=== PATIENT | female | born 1940 | race Caucasian/White ===

== ENCOUNTER 2017-08-28 18:19 | Emergency (ER) | payer OTHER, MEDICARE ==
[~2017-08-28] VITALS: Ht 157.5 cm; Wt 50.2 kg
[~2017-08-28 18:19] MED LIST: ASCORBIC ACID100 MG; ASMANEX TW200 MICROG IH; ASTHMANEX IH; BENTYL10 MG PO; CALCIUM + VITA1 EACH PO; CALCIUM CITR1 TABLET PO; CIPRO500 MG PO; COUMADIN,JANTOVE2 MG PO; COUMADIN6 MG PO; COUMADIN7.5 MG; COUMADIN7.5 MG PO; CREON DR 6,0001 EACH PO; CRESTOR20 MG PO; CRESTOR5 MG PO; DELTASONE10 MG PO; DEXILANT60 MG PO; DICYCLOMINE HCL10 MG PO; KLONOPIN0.5 M1 PO; LEXAPRO20 MG PO; LIPITOR40 MG PO; MIRTAZAPINE15 MG PO; ULTRAM50 MG PO; VIBERZI75 MG PO; ZANTAC150 MG PO; ZEGERID OTC 201 EACH PO
[2017-08-28 20:02] LABS: HEMATOCRIT 32.8 % (36.0-46.0); HEMOGLOBIN 11.1 G/DL (11.9-15.5); MCH 28.3 PG (29.0-34.0); MCHC 33.8 G/DL (30.0-36.0); MCV 83.7 FL (83-99); PLATELET COUNT 163 K/uL (156-360); RBC DIS.WIDTH-CV 14.7 % (11.8-14.6); RBC DIS.WIDTH-SD 44.4 % (39-53); RED BLOOD COUNT 3.92 M/uL (3.80-5.20); WHITE BLOOD COUNT 5.3 K/uL (4.1-10.2)
[2017-08-28 20:10] LABS: INTER. NORMALIZED RATIO 1.9
[2017-08-28 20:14] LABS: ALBUMIN 4.2 g/dL (3.2-4.8); CHLORIDE 108 mEq/L (99-109); POTASSIUM 3.8 mEq/L (3.7-5.4); SODIUM 143 mEq/L (136-147)
[2017-08-28 20:16] LABS: GLUCOSE 102 mg/dL (70-99); TOTAL PROTEIN 6.9 g/dL (6.4-8.3)
[2017-08-28 20:18] LABS: TOTAL BILIRUBIN 1.1 mg/dL (0.0-1.0)
[2017-08-28 20:20] LABS: ALKALINE PHOSPHATASE 130 IU/L (3-129); CREATININE 0.8 mg/dL (0.6-1.3); GFR ESTIMATE (CALCULATED) > 59 mL/min/
[2017-08-28 20:21] LABS: AST (GOT) 22 IU/L (2-34); UREA NITROGEN (BUN) 22 mg/dL (9-23)
[2017-08-28 20:23] LABS: ALT (GPT) 16 IU/L (3-49)
[2017-08-28 20:50] VITALS: BP 141/75
== END 2017-08-28 21:20 | disposition home or self-care (01) ==
LOC: EME 18:19
PROVIDERS: Emergency Medicine
DX: T45.511A Poisoning by anticoagulants, accidental (unintentional), initial encounter (principal); J45.909 Unspecified asthma, uncomplicated; F32.9 Major depressive disorder, single episode, unspecified; K21.9 Gastro-esophageal reflux disease without esophagitis; Z86.718 Personal history of other venous thrombosis and embolism; Z87.01 Personal history of pneumonia (recurrent); Z79.01 Long term (current) use of anticoagulants; Z88.5 Allergy status to narcotic agent
CPT/HCPCS: 80053; 85027; 85610; 99281; 99284

== ENCOUNTER 2017-09-03 19:13 | Inpatient (IN) | payer OTHER, MEDICARE ==
[~2017-09-03] VITALS: Ht 152.4 cm; Wt 56.7 kg
[2017-09-03 19:50] LABS: APPEARANCE CLEAR ((CLEAR)); BILIRUBIN NEGATIVE; BLOOD NEGATIVE; COLOR YELLOW ((YELLOW)); GLUCOSE (STRIP) NEGATIVE; KETONES NEGATIVE; LEUKOCYTES SMALL; NITRITE NEGATIVE; PROTEIN (STRIP) NEGATIVE; UROBILINOGEN 0.2 MG/DL (0.2-1.0)
[2017-09-03 19:51] LABS: BASOPHIL (%) 0.2 % (0-1); EOSINOPHIL (%) 1.3 % (0-5); EOSINOPHIL COUNT 0.1 K/uL (0-0.3); HEMATOCRIT 29.8 % (36.0-46.0); HEMOGLOBIN 9.8 G/DL (11.9-15.5); IMMATURE GRANULOCYTE (%) 0.2 % (0.0-0.7); LYMPHOCYTE (%) 35.3 % (15-42); LYMPHOCYTE COUNT 1.6 K/uL (1.0-2.8); MCH 28.2 PG (29.0-34.0); MCHC 32.9 G/DL (30.0-36.0); MCV 85.6 FL (83-99); MONOCYTE (%) 11.2 % (3-12); MONOCYTE COUNT 0.5 K/uL (0-0.8); NEUTROPHIL (%) 51.8 % (45-76); NEUTROPHIL COUNT 2.3 K/uL (1.8-6.4); PLATELET COUNT 151 K/uL (156-360); RBC DIS.WIDTH-CV 14.9 % (11.8-14.6); RBC DIS.WIDTH-SD 46.3 % (39-53); RED BLOOD COUNT 3.48 M/uL (3.80-5.20); WHITE BLOOD COUNT 4.5 K/uL (4.1-10.2)
[2017-09-03 19:59] LABS: ALBUMIN 3.8 g/dL (3.2-4.8)
[2017-09-03 20:00] LABS: CHLORIDE 106 mEq/L (99-109); POTASSIUM 3.6 mEq/L (3.7-5.4); SODIUM 141 mEq/L (136-147)
[2017-09-03 20:02] LABS: GLUCOSE 179 mg/dL (70-99); TOTAL PROTEIN 6.1 g/dL (6.4-8.3)
[2017-09-03 20:03] LABS: BACTERIA RARE /HPF; EPITHELIAL CELLS RARE /HPF; MUCUS TRACE /LPF; RED BLOOD CELLS 0-5 /HPF (0-5); UCUL ADDED? YES
[2017-09-03 20:04] LABS: INTER. NORMALIZED RATIO 3.1
[2017-09-03 20:05] LABS: ALKALINE PHOSPHATASE 117 IU/L (3-129)
[2017-09-03 20:06] LABS: CREATININE 1.1 mg/dL (0.6-1.3); GFR ESTIMATE (CALCULATED) 51 mL/min/
[2017-09-03 20:07] LABS: AST (GOT) 21 IU/L (2-34); UREA NITROGEN (BUN) 26 mg/dL (9-23)
[2017-09-03 20:08] LABS: ALT (GPT) 15 IU/L (3-49)
[2017-09-03 20:10] LABS: TOTAL BILIRUBIN 0.6 mg/dL (0.0-1.0)
[2017-09-03 20:34] LABS: PTT 34.8 SEC (25-37)
[2017-09-03] MEDS ORDERED: WARFARIN SODIUM4 MG PO (23:34)
[2017-09-03] MEDS ORDERED: LAMICTAL25 MG PO (23:34)
[2017-09-03] MEDS ORDERED: CLONAZEPAM0.5 MG PO (23:36)
[2017-09-03] MEDS ORDERED: MEMANTINE HCL5 MG PO (23:37)
[2017-09-03] MEDS ORDERED: ATORVASTATIN CA40 MG PO (23:38)
[2017-09-03] MEDS ORDERED: ESCITALOPRAM OX20 MG PO (23:40)
[2017-09-03] MEDS ORDERED: VITAMIN C1000 MG PO (23:43)
[2017-09-03] MEDS ORDERED: VITAMIN D31000 UNI2 PO (23:44)
[2017-09-03] MEDS ORDERED: VITAMIN B122500 MCG PO (23:44)
[2017-09-04] VITALS (8 sets, daily range): BP systolic 129–149; BP diastolic 60–70
[2017-09-04 06:00] LABS: INTER. NORMALIZED RATIO 3.5
[2017-09-04 06:03] LABS: HEMATOCRIT 30.3 % (36.0-46.0); HEMOGLOBIN 9.9 G/DL (11.9-15.5); MCH 28.2 PG (29.0-34.0); MCHC 32.7 G/DL (30.0-36.0); MCV 86.3 FL (83-99); PLATELET COUNT 147 K/uL (156-360); RBC DIS.WIDTH-CV 15.2 % (11.8-14.6); RBC DIS.WIDTH-SD 47.7 % (39-53); RED BLOOD COUNT 3.51 M/uL (3.80-5.20); WHITE BLOOD COUNT 4.5 K/uL (4.1-10.2)
[2017-09-04 06:20] LABS: ALBUMIN 3.7 G/DL (3.2-4.8); ALKALINE PHOSPHATASE 96 IU/L (3-129); ALT (GPT) 12 IU/L (3-49); AST (GOT) 16 IU/L (2-34); CHLORIDE 108 MEQ/L (99-109); CREATININE 0.9 MG/DL (0.6-1.3); GFR ESTIMATE (CALCULATED) > 59 mL/min/; POTASSIUM 4.2 MEQ/L (3.7-5.4); SODIUM 142 MEQ/L (136-147); TOTAL BILIRUBIN 0.7 MG/DL (0.0-1.0); TOTAL PROTEIN 5.8 G/DL (6.4-8.3); UREA NITROGEN (BUN) 19 mg/dL (9-23)
[2017-09-04 06:27] LABS: GLUCOSE 80 mg/dL (70-99)
[2017-09-04 16:27] LABS: INTER. NORMALIZED RATIO 4.2
[2017-09-05 03:28] VITALS: BP 158/88
[2017-09-05 05:58] LABS: BASOPHIL (%) 0.5 % (0-1); EOSINOPHIL (%) 1.1 % (0-5); HEMATOCRIT 31.2 % (36.0-46.0); HEMOGLOBIN 10.2 G/DL (11.9-15.5); IMMATURE GRANULOCYTE (%) 0.3 % (0.0-0.7); LYMPHOCYTE (%) 29.5 % (15-42); LYMPHOCYTE COUNT 1.1 K/uL (1.0-2.8); MCH 27.6 PG (29.0-34.0); MCHC 32.7 G/DL (30.0-36.0); MCV 84.3 FL (83-99); MONOCYTE (%) 9.7 % (3-12); MONOCYTE COUNT 0.4 K/uL (0-0.8); NEUTROPHIL (%) 58.9 % (45-76); NEUTROPHIL COUNT 2.2 K/uL (1.8-6.4); PLATELET COUNT 137 K/uL (156-360); RBC DIS.WIDTH-CV 14.9 % (11.8-14.6); RBC DIS.WIDTH-SD 45.6 % (39-53); WHITE BLOOD COUNT 3.8 K/uL (4.1-10.2)
[2017-09-05 06:25] LABS: INTER. NORMALIZED RATIO 3.6
[2017-09-05 07:54] VITALS: BP 164/77
[2017-09-05 11:26] VITALS: BP 123/87
[2017-09-05 15:59] VITALS: BP 132/78
[2017-09-05 20:26] VITALS: BP 160/73
[2017-09-05 23:09] VITALS: BP 162/76
[2017-09-06 03:54] VITALS: BP 166/77
[2017-09-06 05:59] LABS: BASOPHIL (%) 0.5 % (0-1); EOSINOPHIL (%) 1.9 % (0-5); EOSINOPHIL COUNT 0.1 K/uL (0-0.3); HEMATOCRIT 31.2 % (36.0-46.0); LYMPHOCYTE (%) 38.4 % (15-42); LYMPHOCYTE COUNT 1.5 K/uL (1.0-2.8); MCH 27.5 PG (29.0-34.0); MCHC 32.1 G/DL (30.0-36.0); MCV 85.7 FL (83-99); MONOCYTE (%) 11.6 % (3-12); MONOCYTE COUNT 0.4 K/uL (0-0.8); NEUTROPHIL (%) 47.6 % (45-76); NEUTROPHIL COUNT 1.8 K/uL (1.8-6.4); PLATELET COUNT 135 K/uL (156-360); RBC DIS.WIDTH-CV 15.1 % (11.8-14.6); RBC DIS.WIDTH-SD 47.2 % (39-53); RED BLOOD COUNT 3.64 M/uL (3.80-5.20); WHITE BLOOD COUNT 3.8 K/uL (4.1-10.2)
[2017-09-06 06:01] LABS: INTER. NORMALIZED RATIO 3.1
[2017-09-06 08:47] VITALS: BP 117/55; BP 155/78
[2017-09-06 09:26] LABS: LYME DISEASE SEROLOGY SCREEN NEGATIVE (NEGATIVE)
[2017-09-06 12:43] VITALS: BP 158/96
[2017-09-06 16:16] VITALS: BP 146/68
== END 2017-09-06 18:32 | disposition home health service (06) | DRG 918 ==
LOC: EME → EDBD 19:13 → 3EAST 23:08 → EDOF 23:08 → 3EAST 23:08 → ENRESERV 23:10 → 3EAST 09-04 00:59
PROVIDERS: Family Medicine; Physician Assistant
DX: T45.511A Poisoning by anticoagulants, accidental (unintentional), initial encounter (principal); D68.59 Other primary thrombophilia; D69.6 Thrombocytopenia, unspecified; N39.0 Urinary tract infection, site not specified; F03.90 Unspecified dementia, unspecified severity, without behavioral disturbance, psychotic disturbance, mood disturbance, and anxiety; D64.9 Anemia, unspecified; E78.5 Hyperlipidemia, unspecified; F41.9 Anxiety disorder, unspecified; E53.8 Deficiency of other specified B group vitamins; K21.9 Gastro-esophageal reflux disease without esophagitis; F32.9 Major depressive disorder, single episode, unspecified; Z86.718 Personal history of other venous thrombosis and embolism
CPT/HCPCS: 36415; 70450; 80053; 81003; 82607; 84443; 85025; 85027; 85610; 85730; 86618; 86850; 86900; 86901; 87086; 93005; 93880; 99281; 99284; J7030